=== PATIENT | female | born 1985 | race African-American/Black ===

== ENCOUNTER 2016-11-01 05:58 | Emergency (ER) | payer MEDICAID ==
[~2016-11-01] VITALS: Ht 149.9 cm; Wt 79.4 kg
[2016-11-01 06:17] VITALS: BP 146/102
[2016-11-01] MEDS ORDERED: BACTRIM DS TAB1 EAC1 ORAL (06:31)
[2016-11-01 06:41] VITALS: BP 130/80
--- NOTE | 2016-11-01 21:57 | Emergency Room Report ---
History of Present Illness General Chief Complaint: Skin Rash/Abscess Source: Patient Present Illness HPI 31YOF walk-in c/o "spider bite to upper right back." Patient not sure if it was a spider, didnt see an insect. No previous abscesses. No history of DM. C/o sharp pain 9/10 to area. Didnt put anything on bite or take OTC meds. Allergies: Coded Allergies: CEFTRIAXONE (Verified Allergy, Unknown, 11/01/16) IODINE (Verified Allergy, Unknown, 11/01/16) MORPHINE (Verified Allergy, Unknown, 11/01/16) Uncoded Allergies: IV CONTRAST (Allergy, Unknown, 11/01/16) Patient History Past Medical History: none Past Surgical History: none Pertinent Family History: none Social History: Denies: alcohol use, drug use, smoking Last Menstrual Period: October 12, 2016 Now: No Immunizations: UTD Reviewed Nursing Documentation: PMH: Agreed, PSxH: Agreed Nursing Documentation-PMH Hx Asthma: Yes Hx Seizures: Yes Review of Systems All Other Systems: negative except mentioned in HPI Physical Exam Vital Signs Date Time Temp Pulse Resp B/P Pulse Ox O2 Delivery O2 Flow Rate FiO2 11/01/16 06:06 98.2 76 20 146/102 95 Room Air Sp02 EP Interpretation: reviewed, normal General Appearance: normal inspection, well appearing, no apparent distress, alert, GCS 15, non-toxic, other Head: normocephalic, atraumatic Eyes: bilateral eye EOMI, bilateral eye PERRL ENT: normal ENT inspection, hearing grossly normal, normal voice Neck: normal inspection, full range of motion, supple, no bony tend Respiratory: normal inspection, lungs clear, normal breath sounds, no respiratory distress, no retraction, no wheezing Cardiovascular #1: regular rate, rhythm, no edema Gastrointestinal: normal inspection, normal bowel sounds, non tender, soft, no guarding, no hernia Genitourinary: no CVA tenderness Musculoskeletal: normal inspection Neurologic: normal inspection, alert, oriented x3, responsive, 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 Mild surrouding erythema. Very ttp. Already deroofed and draining. Medical Decision Making Diagnostic Impression: Primary Impression: Rash and other nonspecific skin eruption ER Course Abscess to right upper back. Already deroofed and draining Advised warm compresses Rx Bactrim given PEN/CEF allergy PMD folllowup as needed DC home Last Vital Signs Date Time Temp Pulse Resp B/P Pulse Ox O2 Delivery O2 Flow Rate FiO2 11/01/16 06:41 82 16 130/80 98 Room Air 11/01/16 06:17 98.2 Status: improved Disposition: HOME, SELF-CARE Condition: Improved Scripts Trimethoprim/Sulfamethoxazole 160/800* (BACTRIM DS TABLET*) 1 Each Tablet 1 TAB ORAL Q12H for 7 Days, #14 TAB 0 Refills Prov: KATIE AMIN M.D. 11/01/16 [facility]REFERR[facility] (PCP) Patient Instructions: Abscess Additional Instructions: - Take ALL antibiotics - Apply hot compress to area 3x a day KATIE AMIN M.D. Nov 01, 2016 21:57
== END 2016-11-01 06:50 | disposition home or self-care (01) ==
LOC: EMR 06:34
DX: R21 Rash and other nonspecific skin eruption (principal); Z88.6 Allergy status to analgesic agent; Z91.041 Radiographic dye allergy status; J45.909 Unspecified asthma, uncomplicated
CPT/HCPCS: 99283